=== PATIENT | female | born 1965 | race Caucasian/White ===

== ENCOUNTER → 2024-08-05 06:36 | Outpatient (REF) | payer OTHER, SELFPAY | LOC: HWCARD 06:36 | PROVIDERS: ATTENDING PHYSICIAN Orthopaedic Surgery; FAMILY PHYSICIAN Physician Assistant Medical | DX: Z01.818 Encounter for other preprocedural examination (principal) | CPT/HCPCS: 93005 ==

== ENCOUNTER → 2025-05-10 09:32 | Outpatient (REF) | payer OTHER, SELFPAY ==
[2025-05-10 10:33] LABS: ALT (SGPT) 21 U/L (0-35); AST (SGOT) 25 U/L (14-36); Albumin 4.7 g/dl (3.5-5.0); Alkaline Phosphatase 114 U/L (38-126); Blood Urea Nitrogen 13 mg/dl (7-17); Calcium 11.2 mg/dl (8.4-10.2); Carbon Dioxide 26 mmol/L (22-30); Chloride 100 mmol/L (98-107); Glucose 89 mg/dl (70-99); Potassium 4.5 mmol/L (3.5-5.1); Sodium 136 mmol/L (135-145); Total Protein 7.5 g/dl (6.3-8.2); eGFR > 60.00
[2025-05-10 10:50] LABS: Vitamin D, 25-OH*** 22.5 ng/mL (30-80)
[2025-05-10 11:04] LABS: TSH < 0.02 uIU/ml (0.47-4.68)
== END ==
LOC: REG 09:32
PROVIDERS: ATTENDING PHYSICIAN Internal Medicine Endocrinology, Diabetes & Metabolism; FAMILY PHYSICIAN Physician Assistant Medical
DX: Z11.1 Encounter for screening for respiratory tuberculosis (principal); E83.52 Hypercalcemia; E34.9 Endocrine disorder, unspecified; E05.90 Thyrotoxicosis, unspecified without thyrotoxic crisis or storm; E55.9 Vitamin D deficiency, unspecified
CPT/HCPCS: 36415; 80053; 82306; 82330; 83970; 84439; 84443; 86480

== ENCOUNTER → 2025-05-12 10:07 | Outpatient (REF) | payer OTHER, SELFPAY ==
[2025-05-12 15:12] LABS: 24 Hour Urine Total Volume 2500 ml
== END ==
LOC: CLAB 10:07
PROVIDERS: ATTENDING PHYSICIAN Internal Medicine Endocrinology, Diabetes & Metabolism
DX: E83.52 Hypercalcemia (principal); E34.9 Endocrine disorder, unspecified; E05.90 Thyrotoxicosis, unspecified without thyrotoxic crisis or storm; E55.9 Vitamin D deficiency, unspecified
CPT/HCPCS: 81050; 82340; 82570